=== PATIENT | male | born 1995 | race Caucasian/White ===

== ENCOUNTER 2021-07-08 02:08 | Inpatient (IN) | payer MEDICAID ==
[~2021-07-08] VITALS: Ht 177.8 cm; Wt 125.1 kg
[2021-07-08 04:34] VITALS: BP 130/86
[2021-07-08] MEDS ORDERED: MELATONIN 5 MG TABLET PO PRN (06:00)
[2021-07-08] MEDS ORDERED: ACETAMINOPHEN 325 MG TABLET PO PRN ×2 (06:00→12:00)
[2021-07-08] MEDS ORDERED: ONDANSETRON 2MG/ML, 2ML IVPush PRN (06:00)
[2021-07-08] MEDS ORDERED: LABETALOL 5MG/ML, 20ML IVPush PRN (06:00)
[2021-07-08] MEDS ORDERED: morphine SULFATE 10 MG/ML, 1ML IVPush PRN (06:00)
[2021-07-08] MEDS: LACTATED RINGERS 1,000 ML IV SCH ×2 (06:29→22:05)
[2021-07-08] MEDS: CLINDAMYCIN PMX 600MG/50ML 50 ML IV SCH ×3 (06:29→22:05)
[2021-07-08 07:40] VITALS: BP 123/78
[2021-07-08] MEDS: HEPARIN 5,000 UNITS/ML, 1ML SQ SCH ×2 (09:00→16:57)
[2021-07-08] MEDS ORDERED: KETOROLAC 30 MG/1 ML IVPush PRN (09:00)
[2021-07-08] MEDS: SENNA/DOCUSATE TABLET PO SCH (09:00)
[2021-07-08 13:29] VITALS: BP 113/67
[2021-07-08 18:40] VITALS: BP 100/61
[2021-07-09] MEDS: HEPARIN 5,000 UNITS/ML, 1ML SQ SCH ×2 (01:00→08:52)
[2021-07-09 01:13] VITALS: BP 109/74
[2021-07-09] MEDS: CLINDAMYCIN PMX 600MG/50ML 50 ML IV SCH (05:55)
[2021-07-09 07:58] VITALS: BP 121/73
[2021-07-09 08:16] LABS: BASOPHILS % (AUTO) 1 % (0-1); EOSINOPHILS % (AUTO) 2 % (1-7); LYMPHOCYTES % (AUTO) 19 % (22-44); MEAN CORPUSCULAR HEMOGLOBIN 28.8 pg (27.5-34.5); MEAN PLATELET VOLUME 7.7 fL (7.4-10.4); MONOCYTES % (AUTO) 9 % (2-9); NEUTROPHILS % (AUTO) 70 % (42-75); PLATELET COUNT 283 x10^3/uL (130-400); RED BLOOD COUNT 4.95 x10^6/uL (4.38-5.82)
[2021-07-09 08:26] LABS: ANION GAP 8 mmol/L (5-15); CALCIUM 8.9 mg/dL (8.5-10.1); CHLORIDE 108 mmol/L (98-107)
[2021-07-09 08:27] LABS: CREATININE 0.91 mg/dL (0.7-1.3)
[2021-07-09] MEDS: SENNA/DOCUSATE TABLET PO SCH (08:52)
[2021-07-09] MEDS ORDERED: CLIN300C9 PO (09:55)
[2021-07-09] MEDS ORDERED: ACET325T26 PO (09:55)
== END 2021-07-09 12:35 | disposition home or self-care (01) | DRG 158 ==
LOC: ED 03:19 → INTOOBSV 03:32 → EDIP 03:32 → OBSVTOIN 03:32 → 3N 04:11
PROVIDERS: ADMIT Family Medicine; ATTEND Internal Medicine
DX: K04.7 Periapical abscess without sinus (principal); L03.211 Cellulitis of face; E66.01 Morbid (severe) obesity due to excess calories; R59.0 Localized enlarged lymph nodes; D72.829 Elevated white blood cell count, unspecified; Z68.39 Body mass index [BMI] 39.0-39.9, adult; Z83.3 Family history of diabetes mellitus
CPT/HCPCS: 36415; 80048; 85025; 99285; G0378; J7120